=== PATIENT | female | born 1990 | race Caucasian/White ===

== ENCOUNTER → 2022-10-02 11:41 | Outpatient (BNVA) | payer SELFPAY | PROVIDERS: Family Provider Internal Medicine; PCP Family Medicine; Visit Provider Family Medicine | DX: Z01.419 Encounter for gynecological examination (general) (routine) without abnormal findings (principal); Z13.6 Encounter for screening for cardiovascular disorders; N89.8 Other specified noninflammatory disorders of vagina; F31.9 Bipolar disorder, unspecified | CPT/HCPCS: 80053; 80061; 84443; 85025; 87070; 87205; 88175 ==

== ENCOUNTER → 2023-11-05 11:32 | Outpatient (BNVA) | payer MEDICAID, SELFPAY | PROVIDERS: Family Provider Internal Medicine; PCP Family Medicine; Visit Provider Family Medicine | DX: N92.1 Excessive and frequent menstruation with irregular cycle (principal); F31.9 Bipolar disorder, unspecified | CPT/HCPCS: 81025; 85025 ==

== ENCOUNTER → 2024-11-24 09:26 | Outpatient (BNVA) | payer BC, MEDICAID, SELFPAY | PROVIDERS: PCP Family Medicine; Visit Provider Family Medicine | DX: Z13.6 Encounter for screening for cardiovascular disorders (principal); E66.811 Obesity, class 1 | CPT/HCPCS: 80053; 80061; 82306; 85025 ==